=== PATIENT | female | born 1965 | race Caucasian/White ===

== ENCOUNTER 2023-05-01 09:16 | Day surgery (SDC) | payer MEDICAID ==
[2023-05-01] VITALS (8 sets, daily range): BP systolic 112–134; BP diastolic 76–98; PULSE 67–85; RESP 12; TEMP 98.4; O2SAT 94–100
[~2023-05-01] VITALS: Ht 160 cm; Wt 51.9 kg
[2023-05-01] MEDS ORDERED: DULO60CA65 PO (10:44)
[2023-05-01] MEDS ORDERED: MODA100T31 (10:44)
[2023-05-01 13:35] LABS: GLUCOSE,CSF 55 MG/DL (40-75); TOTAL PROTEIN,CSF 40 MG/DL (15-45)
[2023-05-01] MEDS ORDERED: ondansetron 4mg rapidly disintigrating tab PO ONE (13:45)
[2023-05-01 14:04] LABS: APPEARANCE,CSF CLEAR; CSF SUPERNATANT COLOR COLORLESS; CSF VOLUME 15 ML; TUBE# COUNTED 4
[2023-05-01 14:05] LABS: CSF RBC 0 /CU MM (0); CSF WBC CT 1 /CU MM (0-5)
[2023-05-04 14:08] LABS: IMMUNOGLOBULIN G, QN CSF 3.2 mg/dL (0.0-6.7)
== END 2023-05-01 14:45 | disposition home or self-care (01) ==
LOC: SSTAY O 09:16
PROVIDERS: ATTEND Psychiatry & Neurology Neurology
DX: R90.82 White matter disease, unspecified (principal); F32.A Depression, unspecified; F41.9 Anxiety disorder, unspecified; G25.81 Restless legs syndrome; G40.909 Epilepsy, unspecified, not intractable, without status epilepticus; Z79.899 Other long term (current) drug therapy
CPT/HCPCS: 36415; 62328; 82040; 82042; 82164; 82784; 82945; 83873; 83916; 84157; 89051